=== PATIENT | female | born 1985 | race Caucasian/White ===

== ENCOUNTER 2022-08-15 17:45 | Emergency (ER) | payer MEDICAID, SELFPAY ==
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
[2022-08-15 20:12] VITALS: BP 163/103; PULSE 103; RESP 16; TEMP 36.8; O2SAT 96; BMI 40.3
--- NOTE | 2022-08-15 20:20 | CT_ITS ---
PROCEDURE INFORMATION: Exam: CT Cervical Spine Without Contrast Exam date and time: 08/15/2022 8:30 PM Age: 37 years old Clinical indication: Neck pain TECHNIQUE: Imaging protocol: Computed tomography of the cervical spine without contrast. Radiation optimization: All CT scans at this facility use at least one of these dose optimization techniques: automated exposure control; mA and/or kV adjustment per patient size (includes targeted exams where dose is matched to clinical indication); or iterative reconstruction. COMPARISON: CR XR CHEST 2V 08/15/2022 8:18 PM FINDINGS: Bones/joints: Craniocervical alignment is normal. The occipital condyles are intact. The odontoid is intact. No jumped or perched facets. No fractures. There is reversal of cervical lordosis may be positional or could relate to an element of muscular strain/spasm. Cervical alignment is otherwise well maintained. No blastic or lytic lesions. Slight disc space narrowing C5-C6 and C6-C7 with small posterior spondylotic protrusions at these levels measuring up to 3 mm AP. No compressive soft disc protrusion or extrusion is evident by CT. No canal stenosis. No neuroforaminal stenosis. Lungs: Visualized pulmonary apices are clear. Thyroid: The visualized thyroid gland is unremarkable. Soft tissues: Paraspinous soft tissues are unremarkable without significant soft tissue swelling or soft tissue hematoma. IMPRESSION: 1. No evidence of fracture or acute traumatic subluxation. 2. There is reversal of cervical lordosis may be positional or could relate to an element of muscular strain/spasm. 3. Moderate disc space narrowing and small posterior spondylotic protrusions C5-C6 and C6-C7 with no canal or foraminal stenosis.
--- NOTE | 2022-08-15 20:20 | XR_ITS ---
PROCEDURE INFORMATION: Exam: XR Chest Exam date and time: 08/15/2022 8:18 PM Age: 37 years old Clinical indication: Pain; Other: Generalized TECHNIQUE: Imaging protocol: Radiologic exam of the chest. Views: 2 views. COMPARISON: No relevant prior studies available. FINDINGS: Lungs: Unremarkable. No consolidation. Pleural spaces: Unremarkable. No pleural effusion. No pneumothorax. Heart/Mediastinum: Unremarkable. No cardiomegaly. Bones/joints: Unremarkable. IMPRESSION: No acute findings.
--- NOTE | 2022-08-15 20:20 | CT_ITS ---
PROCEDURE INFORMATION: Exam: CT Head Without Contrast Exam date and time: 08/15/2022 8:30 PM Age: 37 years old Clinical indication: Pain; Headache not specified TECHNIQUE: Imaging protocol: Computed tomography of the head without contrast. Radiation optimization: All CT scans at this facility use at least one of these dose optimization techniques: automated exposure control; mA and/or kV adjustment per patient size (includes targeted exams where dose is matched to clinical indication); or iterative reconstruction. COMPARISON: No relevant prior studies available. FINDINGS: Brain: The IACs are grossly normal. No extra-axial fluid collections. No evidence of acute intracranial hemorrhage. No CT evidence of large territory acute or subacute intracranial ischemia/infarct. No intracranial mass lesions. No midline shift or herniation. Cerebral ventricles: Ventricles normal. Pituitary gland and sella: Partially empty sella configuration incidentally noted. Paranasal sinuses: Mild mucosal thickening in the inferior maxillary sinuses, bilateral frontal sinuses, and bilateral sphenoid sinuses, consistent with changes of chronic sinusitis. No fluid levels. Mastoid air cells: Visualized mastoid air cells are clear. Orbital cavities: Visualized orbital contents demonstrate no acute abnormality. No fluid distention of the optic nerve sheaths. Bones/joints: The calvarium and visualized facial bones are intact. Soft tissues: The scalp and visualized soft tissues demonstrate no acute abnormality. Vasculature: The visualized major intracranial arterial segments demonstrate no gross abnormality by noncontrast CT. No asymmetric vascular hyperdensities suggestive of thrombosis are identified. Other findings: Hurtado-white differentiation is well maintained. IMPRESSION: 1. No acute intracranial process. No intracranial hemorrhage or mass effect. 2. Partially empty sella configuration incidentally noted. This can be seen in association with idiopathic intracranial hypertension, although there are no other secondary CT findings of this present.
--- NOTE | 2022-08-15 20:20 | CT_ITS ---
PROCEDURE INFORMATION: Exam: CT Thoracic Spine Without Contrast Exam date and time: 08/15/2022 8:33 PM Age: 37 years old Clinical indication: Pain in thoracic spine TECHNIQUE: Imaging protocol: Computed tomography of the thoracic spine without contrast. Radiation optimization: All CT scans at this facility use at least one of these dose optimization techniques: automated exposure control; mA and/or kV adjustment per patient size (includes targeted exams where dose is matched to clinical indication); or iterative reconstruction. COMPARISON: CT CERVICAL SPINE WO CON 08/15/2022 8:30 PM FINDINGS: Bones/joints: Mild scoliosis of the upper thoracic spine convexity to the right. Soft tissues: Unremarkable. Lungs: Calcified granuloma right lower lung. IMPRESSION: No evidence of acute osseous injury.
[2022-08-15 20:39] VITALS: BP 161/106; PULSE 107; RESP 96; TEMP 37; O2SAT 97; BMI 40.3
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
[2022-08-15 22:53] VITALS: BP 159/78; PULSE 107; RESP 16; TEMP 37; O2SAT 97
== END 2022-08-15 22:54 | disposition home or self-care (01) ==
PROVIDERS: Emergency Provider Emergency Medicine; PCP Nurse Practitioner
DX: S00.93XA Contusion of unspecified part of head, initial encounter (principal); S06.0XAA Concussion with loss of consciousness status unknown, initial encounter; S13.9XXA Sprain of joints and ligaments of unspecified parts of neck, initial encounter; Y09 Assault by unspecified means
CPT/HCPCS: 70450; 71046; 72125; 72128; 99285